=== PATIENT | female | born 1985 | race Caucasian/White ===

== ENCOUNTER 2016-11-16 16:19 | Emergency (ER) ==
[2016-11-16 16:41] VITALS: BP 93/58
--- NOTE | 2016-11-16 17:12 | PROVIDER DOCUMENTATION ---
HPI-Rash/Wound/ReCheck - General Source: patient - History of Present Illness-Dermatology Location: reports: chest (anterior) Quality: reports: itchy Severity: reports: mild Onset/Duration: reports: gradual, 2 days ago, 3 days ago Timing: reports: still present, constant Context/Associated Symptoms: reports: rash. denies: edema, fever, flushing, hives Locality of Occurance: Home Similar Symptoms Previously?: No Recently seen or treated by another doctor?: No <dA Zamora - Last Filed: 11/16/16 17:09> <Barber Canchola - Last Filed: 11/16/16 17:15> - General Chief Complaint: Rash Stated Complaint: RASH Time Seen by Provider: 11/16/16 16:53 Allergies/Adverse Reactions: Allergies Allergy/AdvReac Type Severity Reaction Status Date / Time zolpidem tartrate * AdvReac hallucinate Verified 11/16/16 16:47 [From Ambien] Home Medications: Home Medication List Medication Instructions Recorded Confirmed Last Taken Type Buprenorphine/Naloxone S.l. 1 each SL BID #60 strip 12/14/15 11/16/16 11/16/16 Rx [Suboxone 8 mg/2 mg] Clindamycin [Cleocin] 150 mg PO Q6HR #30 capsule 11/16/16 Unknown Rx Dextroamphetamine/Amphetamine 30 mg PO DAILY 11/16/16 11/16/16 11/15/16 History [Adderall 30 mg Tablet] Mupirocin Ointment [Bactroban 1 applicatn TOP TID #1 tube 11/16/16 Unknown Rx Ointment] - History of Present Illness-Dermatology Nature of Presenting Problem: Patient is a 31 y/o F that presents to the ER with rash to chest x a 3days. patient denies new soap, meds, or clothing. patient denies fever/chills, throat swelling, or shortness of breath. (Ad Zamora) Review of Systems - Adult - REVIEW OF SYSTEMS - ADULT Constitutional: denies: chills, fever Eyes: reports: no symptoms reported Ears, Nose, Mouth & Throat: denies: sinus problem, throat pain, throat swelling Cardiovascular: denies: chest pain, palpitations Respiratory: denies: cough, shortness of breath, wheezing Gastrointestinal: denies: diarrhea, nausea, vomiting Genitourinary: reports: no symptoms reported Musculoskeletal: reports: no symptoms reported Integumentary: reports: itching, rash. denies: hives, skin sores/ulcer, skin thickening Neurological: reports: no symptoms reported Psychiatric: reports: no symptoms reported Endocrine: reports: no symptoms reported Hematologic/Lymphatic: reports: no symptoms reported Allergic/Immunologic: reports: no symptoms reported All Other Systems: Reviewed and Negative <Ad Zamora - Last Filed: 11/16/16 17:09> Past History - Adult - PAST MEDICAL HISTORY-ADULT Review of Records: reports: Old Records Reviewed, Nursing Assessment Review, Medications Reviewed Musculoskeletal: reports: orthopedic injury - PRIOR SURGERIES/PROCEDURES Surgical/Procedure History: reports: , joint replacement - IMMUNIZATION STATUS Childhood Immunizations: See Nurse Assessment Flu Vaccine: See Nurse Assessment - FAMILY HISTORY Family History: reviewed, not pertinent - SOCIAL HISTORY Smoking: cigarettes, less than 1 pack/day <Ad Zamora - Last Filed: 11/16/16 17:09> Physical Exam-General - PHYSICAL EXAM-ADULT Initial Vital Signs Reviewed: Yes - CONSTITUTIONAL General Appearance: alert, no apparent distress - EYES Eyes: PERRL/EOMI, pink conjunctivae - HEAD, EARS, NOSE, MOUTH & THROAT HENMT: normocephalic/atraumatic, moist mucous membranes, normal ENT inspection - NECK Neck: full range of motion, normal inspection. negative: lymphadenopathy - RESPIRATORY Respiratory: lungs clear, normal breath sounds, no respiratory distress, no accessory muscle use - CARDIOVASCULAR Cardiovascular: regular rate, rhythm, no edema, no murmur - GASTROINTESTINAL (ABDOMEN) Abdominal Exam: normal bowel sounds, non tender, soft, no organomegaly, no pulsatile mass - MUSCULOSKELETAL Extremity: normal range of motion, normal inspection - SKIN Integumentary: warm/dry, rash (pustile, fascicular rash to chest) - NEUROLOGIC Neurologic: grossly normal, no motor/sensory deficits - PSYCHIATRIC Psych/Mental Status: normal mood/affect, normal thought content, normal thought process, oriented x 3 <Ad Zamora - Last Filed: 11/16/16 17:09> Progress <Ad Zamora - Last Filed: 11/16/16 17:09> <Barber Canchola - Last Filed: 11/16/16 17:15> - PLAN OF CARE/RESULTS Progress/Plan/Lab Results: Vital Signs Temp Pulse Resp BP Pulse Ox 11/16/16 16:38 97.9 F 98 H 18 93/58 100 zolpidem tartrate * [From Ambien] Adverse Reaction (Verified 11/16/16 16:47) hallucinate headache Buprenorphine/Naloxone S.l. [Suboxone 8 mg/2 mg] 1 each SL BID #60 strip Dextroamphetamine/Amphetamine [Adderall 30 mg Tablet] 30 mg PO DAILY 11/16/16 (Barber Canchola) Departure <Ad Zamora - Last Filed: 11/16/16 17:09> - Departure Time of Disposition Order: 17:13 Certified Medical Emergency: Urgent <Barber Canchola - Last Filed: 11/16/16 17:15> - Departure DIAGNOSIS: Folliculitis Disposition: HOME 01 Condition: Good Additional Instructions: Take medication as prescribed. Follow up with your primary care provider. ED Follow Up Instructions: You have been treated by a care provider in the Emergency Department. These instructions are being provided to you so you can have an understanding of how to care for yourself upon discharge. Upon discharge from the Emergency Department, you are responsible for making arrangements for follow-up care by a physician of your choice. Take all prescribed medications as directed. Return to the Emergency Department immediately for any new or worsening symptoms. You may call the Physician Referral phone number at [phone] to obtain a list of Physicians who are taking new patients. Prescriptions: Mupirocin Ointment [Bactroban Ointment] 1 applicatn TOP TID #1 tube Clindamycin [Cleocin] 150 mg PO Q6HR #30 capsule Referrals: Agustina Jackson CRNP [Primary Care Provider] - Antonia Madison MD [STAFF PHYSICIAN] - Attestation - Scribe Verification/Attestation Scribe:: Ad Zamora Acting as Scribe for:: Barber Canchola Scribe documention review:: This chart was documented by a scribe and accurately reflects the service the provider performed and the decisions made by the provider. - Physician/ LIV Attestation Patient care was provided by Advanced Practice Provider:: Yes Advanced Practice Provider:: Barber Canchola Advanced Practice Provider documentation review:: The Mid-level provider documentation, treatment plan and medical decision making was reviewed by the physician who agrees with all treatment and medical decision making by the MLP. <Ad Zamora - Last Filed: 11/16/16 17:09> - Physician/ LIV Attestation Patient care was provided by Advanced Practice Provider:: Yes Advanced Practice Provider:: Barber Canchola Advanced Practice Provider documentation review:: The Mid-level provider documentation, treatment plan and medical decision making was reviewed by the physician who agrees with all treatment and medical decision making by the MLP. <Barber Canchola - Last Filed: 11/16/16 17:15> Physician Attestation - Physician Attestation I, the provider, attest to the following statement:: Barber Canchola (.) Physician documentation Attestation:: This documentation recorded by the scribe accurately reflects the service I personally performed and the decisions made by me. <Ad Zamora - Last Filed: 11/16/16 17:09>
== END 2016-11-16 17:25 | disposition home or self-care (01) ==
LOC: ED 16:19
DX: L73.9 Follicular disorder, unspecified (principal); R21 Rash and other nonspecific skin eruption; L29.9 Pruritus, unspecified; F17.210 Nicotine dependence, cigarettes, uncomplicated; Z96.60 Presence of unspecified orthopedic joint implant

== ENCOUNTER 2016-11-25 12:31 | Emergency (ER) | payer OTHER ==
[2016-11-25] MEDS ORDERED: NITROGLYCERIN SL PRN (12:44)
[2016-11-25] MEDS ORDERED: ASPIRIN PO STA (12:44)
--- NOTE | 2016-11-25 12:50 | ED EKG INTERP ---
EKG Interpretation - EKG Time of EKG reading by physician:: 12:41 EKG Read and Signed by:: Héctor Walsh EKG Interpretation (*Must complete 3 of following elements*): Normal Rate: 85 Rhythm: NSR Attestation - Scribe Verification/Attestation Scribe:: Ana Pringle Acting as Scribe for:: Héctor Walsh Scribe documention review:: This chart was documented by a scribe and accurately reflects the service the provider performed and the decisions made by the provider.
[2016-11-25 13:10] LABS: MANUAL DIFF NEEDED? NO
[2016-11-25 13:14] LABS: BASO% 0.3 % (0.0-0.8); EOS# 0.14 X1000 (0.0-0.7); EOS% 1.9 % (0.0-10.0); HEMATOCRIT 37.7 % (37.0-47.0); HEMOGLOBIN 13.2 g/dL (12.0-16.0); LYMPH# 2.51 X1000 (1.2-3.4); LYMPH% 34.2 % (20.5-51.1); MCH 31.2 PG (27-31); MCV 89.1 FL (81-99); MONO# 0.81 X1000 (0.11-0.59); MONO% 11.1 % (1.7-9.3); MPV 9.3 FL (7.4-10.4); NEUT% 52.5 % (42.2-75.2); PLT 326 X1000 (130-400); RBC 4.23 XMIL (4.2-5.4)
[2016-11-25 13:23] LABS: PROTIME 10.5 Seconds (9.2-11.7); PTT 27.8 Seconds (22.0-36.0)
[2016-11-25 13:40] LABS: AGAP 12; ALBUMIN 3.7 g/dL (3.5-5.0); ALKALINE PHOSPHATASE 93 U/L (32-104); BUN 14 mg/dL (8-22); CALCIUM 8.3 mg/dL (8.8-10.2); CHLORIDE 105 mmol/L (98-107); CK PROFILE 57 U/L (24-173); COSMO 272; GOT 23 U/L (10-30); GPT 26 U/L (10-36); MAGNESIUM 1.8 mg/dL (1.5-2.7); POTASSIUM 3.7 mmol/L (3.5-5.1); SODIUM 136 mmol/L (136-145); TCO2 19 mmol/L (25-35); TOTAL BILIRUBIN 0.15 mg/dL (0.20-1.00); TOTAL PROTEIN 7.4 g/dL (6.3-8.3)
--- NOTE | 2016-11-25 14:06 | EKG Report ---
Test Performed on : 11/25/2016 12:41:20 PM Test Reason : CP Blood Pressure : / mmHG Vent. Rate : 085 BPM Atrial Rate : 085 BPM P-R Int : 156 ms QRS Dur : 064 ms QT Int : 352 ms P-R-T Axes : 008 018 015 degrees QTc Int : 418 ms Normal sinus rhythm. Normal ECG When compared with ECG of 10-JUL-2016 21:45, No significant change was found Unconfirmed Result
[2016-11-25 14:20] LABS: URINE MICRO REVIEW NEEDED? NO; URINE SOURCE CLEAN CATCH
[2016-11-25 14:28] VITALS: BP 124/81
[2016-11-25 14:30] LABS: BILIRUBIN URINE NEGATIVE (NEGATIVE); BLOOD URINE TRACE (NEGATIVE); COLOR YELLOW; GLUCOSE URINE NEGATIVE (NEGATIVE); LEUKOCYTES URINE MODERATE (NEGATIVE); NITRITE URINE POSITIVE (NEGATIVE); PH URINE 5.5; PROTEIN URINE TRACE mg/dL (NEGATIVE); SP GRAVITY URINE 1.029; TURBIDITY URINE HAZY (CLEAR); UROBILINOGEN URINE NORMAL (NORMAL)
[2016-11-25 14:31] LABS: UR EPITHELIAL CELLS >10 /HPF (<10); URINE BACTERIA 4+ /HPF; URINE CULTURE NEEDED? YES; URINE RBC <10 /HPF (<10)
[2016-11-25] MEDS ORDERED: ROBAXIN PO ONE (14:36)
--- NOTE | 2016-11-25 14:41 | Diag Imaging Result Document ---
PROCEDURE NAME: CHEST-2 VIEWS - 11/25/2016 CHEST X-RAY, 2 VIEWS: COMPARISON: 07/13/16 FINDINGS: The lungs are normally expanded and clear. Heart size and mediastinal contours are normal. No pneumothorax or pleural effusion. IMPRESSION: Negative exam.
--- NOTE | 2016-11-25 14:44 | PROVIDER DOCUMENTATION ---
HPI-Chest Pain - General Chief Complaint: Chest Pain Stated Complaint: CP,TINGLING IN LEFT ARM Time Seen by Provider: 11/25/16 14:34 Source: patient Allergies/Adverse Reactions: Patient Allergies Allergy/AdvReac Type Severity Reaction Status Date / Time zolpidem tartrate * AdvReac hallucinate Verified 11/25/16 14:32 [From Ambien] Home Medications: Home Medication List Medication Instructions Recorded Confirmed Last Taken Type Methocarbamol [Robaxin] 500 mg PO BID #20 tablet 11/25/16 Unknown Rx Sulfamethoxazole/Trimethoprim 1 each PO BID #14 tablet 11/25/16 Unknown Rx [Bactrim Ds Tablet] - History of Present Illness-CP Nature of Presenting Problem: 31 y/o F with history of PTSD and fibromyalgia presents with left upper back pain that radiates into the left chest and left arm that began at 8am this morning. Patient states the pain began when laying down and has been constant. Pain is described as throbbing with associated tingling in the left hand. She also reports anxiety and increased stress recently. She denies any SOB, N/V, diaphoresis, history of PE/DVT. Her PCP is Dr. Jackson. She is on suboxone and mobic for pain and prozac for anxiety/depression/PTSD. Denies any HI/SI. Location: reports: back, other (left upper chest) Quality of Pain: reports: throbbing Severity in ED: moderate Onset/Duration: this morning Timing: still present Context/Activities at Onset: reports: recent emotional stress Modifying Factors: improves with: nothing Associated Symptoms: denies: diaphoresis, dizziness, fever/chills, nausea, weakness Review of Systems - Adult - REVIEW OF SYSTEMS - ADULT Constitutional: reports: no symptoms reported. denies: chills, fever Eyes: reports: no symptoms reported. denies: decreased vision, blurred vision Ears, Nose, Mouth & Throat: reports: no symptoms reported. denies: ear pain, hearing loss Cardiovascular: reports: see HPI Respiratory: reports: no symptoms reported. denies: cough, shortness of breath , wheezing Gastrointestinal: reports: no symptoms reported. denies: abdominal pain, nausea , vomiting Genitourinary: reports: frequency. denies: flank pain, hematuria Musculoskeletal: reports: see HPI Integumentary: reports: no symptoms reported Neurological: reports: no symptoms reported. denies: dizziness/vertigo, headache/migraines, numbness, paresthesia Psychiatric: reports: no symptoms reported Endocrine: reports: no symptoms reported Hematologic/Lymphatic: reports: no symptoms reported. denies: blood clots, easy bruising Allergic/Immunologic: reports: no symptoms reported All Other Systems: Reviewed and Negative Past History - Adult - PAST MEDICAL HISTORY-ADULT Review of Records: reports: Nursing Assessment Review, Medications Reviewed Musculoskeletal: reports: orthopedic injury - PRIOR SURGERIES/PROCEDURES Surgical/Procedure History: reports: , joint replacement - IMMUNIZATION STATUS Childhood Immunizations: See Nurse Assessment Flu Vaccine: See Nurse Assessment - FAMILY HISTORY Family History: reviewed, not pertinent Physical Exam-General - PHYSICAL EXAM-ADULT Initial Vital Signs Reviewed: Yes - CONSTITUTIONAL General Appearance: alert, no apparent distress, anxious - EYES Eyes: PERRL/EOMI, pink conjunctivae - HEAD, EARS, NOSE, MOUTH & THROAT HENMT: normocephalic/atraumatic, moist mucous membranes - NECK Neck: supple, other (pain in left upper back with right lateral tilt of head. Tenderness of left upper trapezius muscle.) - RESPIRATORY Respiratory: lungs clear, normal breath sounds, no pleuratic chest pain, no respiratory distress, no accessory muscle use, other (left upper chest tenderness) - CARDIOVASCULAR Cardiovascular: normal peripheral pulses, regular rate, rhythm, no edema, no gallop, no JVD, no murmur - GASTROINTESTINAL (ABDOMEN) Abdominal Exam: normal bowel sounds, non tender, soft - LYMPHATIC Lymphatic: no adenopathy - MUSCULOSKELETAL Back Exam: normal inspection, no vertebral tenderness Extremity: other (bilateral upper extremity with full ROM and normal strength. Bilateral LE are normal.) - SKIN Integumentary: normal color, normal turgor, warm/dry - NEUROLOGIC Neurologic: grossly normal, no motor/sensory deficits. negative: focal weakness , motor weakness, sensory deficit - PSYCHIATRIC Psych/Mental Status: normal thought content, normal thought process, oriented x 3, anxious Progress - PLAN OF CARE/RESULTS Progress/Plan/Lab Results: Laboratory Tests 11/25/16 11/25/16 11/25/16 12:57 12:57 12:57 WBC 7.33 RBC 4.23 Hgb 13.2 Hct 37.7 MCV 89.1 MCH 31.2 H MCHC 35.0 RDW Std Deviation 11.5 Plt Count 326 MPV 9.3 Immature Gran % (Auto) 0.0 Neut % (Auto) 52.5 Lymph % (Auto) 34.2 [place] % (Auto) 11.1 H Eos % (Auto) 1.9 Baso % (Auto) 0.3 Immature Gran # (Auto) 0.00 Neut # (Auto) 3.85 Lymph # (Auto) 2.51 [place] # (Auto) 0.81 H Eos # (Auto) 0.14 Baso # (Auto) 0.02 PT INR PTT (Actin FS) D-Dimer 0.22 Sodium 136 Potassium 3.7 Chloride 105 Carbon Dioxide 19 L Anion Gap 12 BUN 14 Creatinine 0.6 Estimated GFR/1.73 m2 > 60 BUN/Creatinine Ratio 23 Glucose 96 Calculated Osmolality 272 Calcium 8.3 L Magnesium 1.8 Total Bilirubin 0.15 L AST 23 ALT 26 Alkaline Phosphatase 93 Creatine Kinase 57 Troponin T Pti-I-Nscdprgfdze Pept Total Protein 7.4 Albumin 3.7 Globulin 3.7 Albumin/Globulin Ratio 1.0 Urine Source Urine Color Urine Turbidity Urine pH Ur Specific [place] Urine Protein Ur Glucose (Stick) Ur Ketones (Stick) Urine Blood Urine Nitrite Urine Bilirubin Urobilinogen Dipstick Urine Leukocytes Urine WBC (Auto) Urine RBC (Auto) U Epithel Cells (Auto) Urine Bacteria (Auto) 11/25/16 11/25/16 11/25/16 12:57 12:57 12:57 WBC RBC Hgb Hct MCV MCH MCHC RDW Std Deviation Plt Count MPV Immature Gran % (Auto) Neut % (Auto) Lymph % (Auto) [place] % (Auto) Eos % (Auto) Baso % (Auto) Immature Gran # (Auto) Neut # (Auto) Lymph # (Auto) [place] # (Auto) Eos # (Auto) Baso # (Auto) PT 10.5 INR 1.00 PTT (Actin FS) 27.8 D-Dimer Sodium Potassium Chloride Carbon Dioxide Anion Gap BUN Creatinine Estimated GFR/1.73 m2 BUN/Creatinine Ratio Glucose Calculated Osmolality Calcium Magnesium Total Bilirubin AST ALT Alkaline Phosphatase Creatine Kinase Troponin T < 0.010 Jfe-S-Mppufnfjkri Pept 16 Total Protein Albumin Globulin Albumin/Globulin Ratio Urine Source Urine Color Urine Turbidity Urine pH Ur Specific [place] Urine Protein Ur Glucose (Stick) Ur Ketones (Stick) Urine Blood Urine Nitrite Urine Bilirubin Urobilinogen Dipstick Urine Leukocytes Urine WBC (Auto) Urine RBC (Auto) U Epithel Cells (Auto) Urine Bacteria (Auto) 11/25/16 13:25 WBC RBC Hgb Hct MCV MCH MCHC RDW Std Deviation Plt Count MPV Immature Gran % (Auto) Neut % (Auto) Lymph % (Auto) [place] % (Auto) Eos % (Auto) Baso % (Auto) Immature Gran # (Auto) Neut # (Auto) Lymph # (Auto) [place] # (Auto) Eos # (Auto) Baso # (Auto) PT INR PTT (Actin FS) D-Dimer Sodium Potassium Chloride Carbon Dioxide Anion Gap BUN Creatinine Estimated GFR/1.73 m2 BUN/Creatinine Ratio Glucose Calculated Osmolality Calcium Magnesium Total Bilirubin AST ALT Alkaline Phosphatase Creatine Kinase Troponin T Dme-N-Sgehkpbwuah Pept Total Protein Albumin Globulin Albumin/Globulin Ratio Urine Source CLEAN CATCH Urine Color YELLOW Urine Turbidity HAZY Urine pH 5.5 Ur Specific [place] 1.029 Urine Protein TRACE A Ur Glucose (Stick) NEGATIVE Ur Ketones (Stick) NEGATIVE Urine Blood TRACE A Urine Nitrite POSITIVE A Urine Bilirubin NEGATIVE Urobilinogen Dipstick NORMAL Urine Leukocytes MODERATE A Urine WBC (Auto) 10-20 A Urine RBC (Auto) <10 U Epithel Cells (Auto) >10 A Urine Bacteria (Auto) 4+ Orders Category Date Time Status Cardiac Monitoring DIRECTED Care 11/25/16 12:44 Active Saline Loc NOW Care 11/25/16 12:44 Active CHEST-2 VIEWS [RAD] Stat Exams 11/25/16 12:44 Draft CBC WITH ELECTRONIC DIFF [HEME] Stat Lab 11/25/16 12:57 Completed CK PROFILE [SP CHEM] Stat Lab 11/25/16 12:57 Completed COMPREHENSIVE METABOLIC PANEL [CHEM] Stat Lab 11/25/16 12:57 Completed D-DIMER [CHEM] Stat Lab 11/25/16 12:57 Completed MAGNESIUM [CHEM] Stat Lab 11/25/16 12:57 Completed PRO B-NATRIURETIC PEPTIDE Stat Lab 11/25/16 12:57 Completed PROTIME WITH INR [COAG] Stat Lab 11/25/16 12:57 Completed PTT [COAG] Stat Lab 11/25/16 12:57 Completed TROPONIN T Stat Lab 11/25/16 12:57 Completed UA NIMS W/REFLEX CULT [URINALYSIS] Stat Lab 11/25/16 13:25 Completed URINE CULTURE [RM] Routine Lab 11/25/16 14:35 Received Aspirin Med 11/25/16 12:44 Discontinued 325 mg PO STAT STA Methocarbamol [Robaxin] Med 11/25/16 14:36 Discontinued 500 mg PO NOW ONE Nitroglycerin Sl [Nitroglycerin] Med 11/25/16 12:44 Discontinued 0.4 mg SL Q5M PRN PRN EKG [EKG] Stat Ther 11/25/16 12:38 Draft Vital Signs Temp Pulse Resp BP Pulse Ox 11/25/16 14:27 93 H 18 124/81 99 11/25/16 12:45 97.4 F L 90 18 111/77 100 zolpidem tartrate * [From Ambien] Adverse Reaction (Verified 11/25/16 14:32) hallucinate headache Methocarbamol [Robaxin] 500 mg PO BID #20 tablet 11/25/16 Sulfamethoxazole/Trimethoprim [Bactrim Ds Tablet] 1 each PO BID #14 tablet 11/25 Laboratory 11/25/16 11/25/16 11/25/16 13:25 12:57 12:57 WBC RBC Hgb Hct MCV MCH MCHC RDW Std Deviation Plt Count MPV Immature Gran % (Auto) Neut % (Auto) Lymph % (Auto) [place] % (Auto) Eos % (Auto) Baso % (Auto) Immature Gran # (Auto) Neut # (Auto) Lymph # (Auto) [place] # (Auto) Eos # (Auto) Baso # (Auto) PT 10.5 INR 1.00 PTT (Actin FS) 27.8 D-Dimer Sodium Potassium Chloride Carbon Dioxide Anion Gap BUN Creatinine Estimated GFR/1.73 m2 BUN/Creatinine Ratio Glucose Calculated Osmolality Calcium Magnesium Total Bilirubin AST ALT Alkaline Phosphatase Creatine Kinase Troponin T < 0.010 Tev-U-Wscjknfymid Pept Total Protein Albumin Globulin Albumin/Globulin Ratio Urine Source CLEAN CATCH Urine Color YELLOW Urine Turbidity HAZY Urine pH 5.5 Ur Specific [place] 1.029 Urine Protein TRACE A Ur Glucose (Stick) NEGATIVE Ur Ketones (Stick) NEGATIVE Urine Blood TRACE A Urine Nitrite POSITIVE A Urine Bilirubin NEGATIVE Urobilinogen Dipstick NORMAL Urine Leukocytes MODERATE A Urine WBC (Auto) 10-20 A Urine RBC (Auto) <10 U Epithel Cells (Auto) >10 A Urine Bacteria (Auto) 4+ 11/25/16 11/25/16 11/25/16 12:57 12:57 12:57 WBC RBC Hgb Hct MCV MCH MCHC RDW Std Deviation Plt Count MPV Immature Gran % (Auto) Neut % (Auto) Lymph % (Auto) [place] % (Auto) Eos % (Auto) Baso % (Auto) Immature Gran # (Auto) Neut # (Auto) Lymph # (Auto) [place] # (Auto) Eos # (Auto) Baso # (Auto) PT INR PTT (Actin FS) D-Dimer 0.22 Sodium 136 Potassium 3.7 Chloride 105 Carbon Dioxide 19 L Anion Gap 12 BUN 14 Creatinine 0.6 Estimated GFR/1.73 m2 > 60 BUN/Creatinine Ratio 23 Glucose 96 Calculated Osmolality 272 Calcium 8.3 L Magnesium 1.8 Total Bilirubin 0.15 L AST 23 ALT 26 Alkaline Phosphatase 93 Creatine Kinase 57 Troponin T Ojd-G-Rebpgakxdes Pept 16 Total Protein 7.4 Albumin 3.7 Globulin 3.7 Albumin/Globulin Ratio 1.0 Urine Source Urine Color Urine Turbidity Urine pH Ur Specific [place] Urine Protein Ur Glucose (Stick) Ur Ketones (Stick) Urine Blood Urine Nitrite Urine Bilirubin Urobilinogen Dipstick Urine Leukocytes Urine WBC (Auto) Urine RBC (Auto) U Epithel Cells (Auto) Urine Bacteria (Auto) 11/25/16 12:57 WBC 7.33 RBC 4.23 Hgb 13.2 Hct 37.7 MCV 89.1 MCH 31.2 H MCHC 35.0 RDW Std Deviation 11.5 Plt Count 326 MPV 9.3 Immature Gran % (Auto) 0.0 Neut % (Auto) 52.5 Lymph % (Auto) 34.2 [place] % (Auto) 11.1 H Eos % (Auto) 1.9 Baso % (Auto) 0.3 Immature Gran # (Auto) 0.00 Neut # (Auto) 3.85 Lymph # (Auto) 2.51 [place] # (Auto) 0.81 H Eos # (Auto) 0.14 Baso # (Auto) 0.02 PT INR PTT (Actin FS) D-Dimer Sodium Potassium Chloride Carbon Dioxide Anion Gap BUN Creatinine Estimated GFR/1.73 m2 BUN/Creatinine Ratio Glucose Calculated Osmolality Calcium Magnesium Total Bilirubin AST ALT Alkaline Phosphatase Creatine Kinase Troponin T Ibz-V-Wuhcpxwvxme Pept Total Protein Albumin Globulin Albumin/Globulin Ratio Urine Source Urine Color Urine Turbidity Urine pH Ur Specific [place] Urine Protein Ur Glucose (Stick) Ur Ketones (Stick) Urine Blood Urine Nitrite Urine Bilirubin Urobilinogen Dipstick Urine Leukocytes Urine WBC (Auto) Urine RBC (Auto) U Epithel Cells (Auto) Urine Bacteria (Auto) Departure - Departure Time of Disposition Order: 14:37 DIAGNOSIS: Chest wall pain, Upper back pain on right side, UTI (urinary tract infection) Disposition: HOME 01 Certified Medical Emergency: Emergent Condition: Good Additional Instructions: ED Follow Up Instructions: You have been treated by a care provider in the Emergency Department. These instructions are being provided to you so you can have an understanding of how to care for yourself upon discharge. Upon discharge from the Emergency Department, you are responsible for making arrangements for follow-up care by a physician of your choice. Take all prescribed medications as directed. Return to the Emergency Department immediately for any new or worsening symptoms. You may call the Physician Referral phone number at [phone] to obtain a list of Physicians who are taking new patients. Prescriptions: Sulfamethoxazole/Trimethoprim [Bactrim Ds Tablet] 1 each PO BID #14 tablet Methocarbamol [Robaxin] 500 mg PO BID #20 tablet Referrals: Agustina Jackson CRNP [Primary Care Provider] - Instructions: Chest Wall Pain, [id number], Urinary Tract Infection, Easy-to- Read Attestation - Physician/ LIV Attestation Patient care was provided by Advanced Practice Provider:: Yes Advanced Practice Provider:: Pushpa Urrutia Advanced Practice Provider documentation review:: The Mid-level provider documentation, treatment plan and medical decision making was reviewed by the physician who agrees with all treatment and medical decision making by the MLP.
== END 2016-11-25 14:50 | disposition home or self-care (01) ==
LOC: ED 12:31
DX: N39.0 Urinary tract infection, site not specified (principal); R07.89 Other chest pain; M54.6 Pain in thoracic spine; R20.2 Paresthesia of skin; M79.602 Pain in left arm; R35.0 Frequency of micturition; M79.1 Myalgia; M79.7 Fibromyalgia; Z96.60 Presence of unspecified orthopedic joint implant
CPT/HCPCS: 71020; 80053; 81001; 82550; 83735; 83880; 84484; 85025; 85379; 85610; 85730; 87077; 87088; 93005

== ENCOUNTER 2017-03-16 16:36 | Inpatient (IN) ==
[2017-03-16] MEDS ORDERED: ZOFRAN IV ONE (17:42)
[2017-03-16] MEDS ORDERED: FLEET MINERAL OIL ENEMA PR ONE (17:43)
[2017-03-16] MEDS ORDERED: RELISTOR SUBQ ONE (17:48)
[2017-03-16 18:07] LABS: MANUAL DIFF NEEDED? NO
[2017-03-16 18:12] LABS: URINE SOURCE CLEAN CATCH
[2017-03-16 18:13] LABS: BASO% 0.1 % (0.0-0.8); EOS# 0.01 X1000 (0.0-0.7); EOS% 0.1 % (0.0-10.0); HEMATOCRIT 32.6 % (37.0-47.0); HEMOGLOBIN 11.3 g/dL (12.0-16.0); IMM GRAN# 0.02 X1000 (0.0-0.04); IMM GRAN% 0.2 % (0.0-0.5); LYMPH# 1.02 X1000 (1.2-3.4); LYMPH% 10.9 % (20.5-51.1); MCH 30.4 PG (27-31); MCHC 34.7 g/dL (33-37); MCV 87.6 FL (81-99); MONO# 1.55 X1000 (0.11-0.59); MONO% 16.5 % (1.7-9.3); MPV 10.2 FL (7.4-10.4); NEUT% 72.2 % (42.2-75.2); PLT 254 X1000 (130-400); RBC 3.72 XMIL (4.2-5.4)
[2017-03-16 18:17] LABS: BILIRUBIN URINE NEGATIVE (NEGATIVE); BLOOD URINE SMALL (NEGATIVE); COLOR ORANGE; GLUCOSE URINE NEGATIVE (NEGATIVE); LEUKOCYTES URINE LARGE (NEGATIVE); NITRITE URINE POSITIVE (NEGATIVE); PH URINE 7.5; PROTEIN URINE 30 mg/dL (NEGATIVE); SP GRAVITY URINE 1.005; TURBIDITY URINE HAZY (CLEAR); URINE MICRO REVIEW NEEDED? YES; UROBILINOGEN URINE NORMAL (NORMAL)
[2017-03-16 18:20] LABS: UR EPITHELIAL CELLS <10 /HPF (<10); URINE BACTERIA 4+ /HPF; URINE CULTURE NEEDED? YES; URINE RBC <10 /HPF (<10); URINE WBC TNTC /HPF (<10)
--- NOTE | 2017-03-16 18:41 | PROVIDER DOCUMENTATION ---
This chart was entered by Luz Melo Scribe, acting as scribe for Juan Carlos Ochoa MD. HPI-Abdominal Pain/GI Problem <Silas Arellano. - Last Filed: 03/16/17 20:56> - General Source: patient - History of Present Illness-ABD Nature of Presenting Problems: 31 Y/O F presents to ED with ABD pain. Pt states that she hasn't had a BM in 4 weeks. PT states that is Normal for her. Pt states that she started V on Wednesday and is c/o of N, Pt states Headache sharp in frontal, Fever subjective. Pt states chills that started last night. Pt states she tried a home made enema, and took a laxative last night. Per boyfriend states that she had rapid, shallow breathes denies CP. PT states that she is on the implanon. Abdominal Pain Onset Location: reports: RUQ, RLQ Pain Radiation: reports: no radiation Quality of Pain: reports: cramping Severity in ED: reports: severe Onset/Duration: reports: last night Timing: reports: still present Associated Symptoms: reports: constipation, fever/chills, headaches, nausea, vomiting. denies: chest pain, cough, diarrhea, genitourinary problems, muscle aches, sinus congestion/drainage Last BM: other (4 weeks ago) <Juan Carlos Ochoa - Last Filed: 03/17/17 20:21> - General Chief Complaint: Constipation Stated Complaint: CONSTIPATED,VOMITING,FEVER Time Seen by Provider: 03/16/17 17:29 Allergies/Adverse Reactions: Patient Allergies Allergy/AdvReac Type Severity Reaction Status Date / Time No Known Allergies Allergy Verified 03/16/17 17:43 Home Medications: Home Medication List Medication Instructions Recorded Confirmed Last Taken Type NK [No Home Medications] 03/16/17 03/16/17 Unknown History Review of Systems - Adult - REVIEW OF SYSTEMS - ADULT Constitutional: reports: chills, fever Eyes: reports: no symptoms reported Ears, Nose, Mouth & Throat: reports: no symptoms reported Cardiovascular: denies: chest pain Respiratory: denies: cough, shortness of breath Gastrointestinal: reports: abdominal pain, constipation, nausea, vomiting. denies: diarrhea Genitourinary: reports: no symptoms reported Musculoskeletal: reports: no symptoms reported Integumentary: reports: no symptoms reported Neurological: reports: headache/migraines Psychiatric: reports: no symptoms reported Endocrine: reports: no symptoms reported Hematologic/Lymphatic: reports: no symptoms reported Allergic/Immunologic: reports: no symptoms reported All Other Systems: Reviewed and Negative <Juan Carlos Ochoa - Last Filed: 03/17/17 20:21> Past History - Adult - PAST MEDICAL HISTORY-ADULT Review of Records: reports: Old Records Reviewed, Nursing Assessment Review, Medications Reviewed, Social history reviewed & non-contributory. Major Childhood Illnesses: reports: denies history Cardiovascular: reports: denies history Respiratory: reports: denies history Gastrointestinal: reports: denies history Obstetrical/Gynecological: reports: denies history Genitourinary: reports: denies history Musculoskeletal: reports: fibromyalgia, orthopedic injury Neurological: reports: other (ADD) Endocrine/Immune: reports: denies history Other Conditions: reports: denies history - PRIOR SURGERIES/PROCEDURES Surgical/Procedure History: reports: , joint replacement - IMMUNIZATION STATUS Childhood Immunizations: See Nurse Assessment Flu Vaccine: See Nurse Assessment - FAMILY HISTORY Family History: reviewed, not pertinent <Juan Carlos Ochoa - Last Filed: 03/17/17 20:21> Physical Exam-General - CONSTITUTIONAL General Appearance: alert, mild distress - EYES Eyes: pink conjunctivae, anisocoria - HEAD, EARS, NOSE, MOUTH & THROAT HENMT: TMs normal, pharynx normal, dental decay. negative: moist mucous membranes - NECK Neck: full range of motion, supple, normal inspection - RESPIRATORY Respiratory: lungs clear, normal breath sounds - CARDIOVASCULAR Cardiovascular: regular rate, rhythm - GASTROINTESTINAL (ABDOMEN) Abdominal Exam: soft, tenderness (RUQ) - LYMPHATIC Lymphatic: no adenopathy - MUSCULOSKELETAL Back Exam: no CVA tenderness, no vertebral tenderness Extremity: normal range of motion, non-tender - SKIN Integumentary: normal turgor, warm/dry - NEUROLOGIC Neurologic: grossly normal - PSYCHIATRIC Psych/Mental Status: normal mood/affect, normal thought content, normal thought process, oriented x 3 <Juan Carlos Ochoa - Last Filed: 03/17/17 20:21> Progress - PLAN OF CARE/RESULTS Progress/Plan/Lab Results: Vital Signs - 8 hr 03/16/17 17:05 Temperature 100.5 F H Pulse Rate 122 H Respiratory Rate 24 Blood Pressure 107/72 O2 Sat by Pulse Oximetry 100 Laboratory Results - last 24 hr 03/16/17 03/16/17 03/16/17 17:55 17:55 18:08 WBC 9.37 RBC 3.72 L Hgb 11.3 L Hct 32.6 L MCV 87.6 MCH 30.4 MCHC 34.7 RDW Std Deviation 12.4 Plt Count 254 MPV 10.2 Immature Gran % (Auto) 0.2 Neut % (Auto) 72.2 Lymph % (Auto) 10.9 L Benson % (Auto) 16.5 H Eos % (Auto) 0.1 Baso % (Auto) 0.1 Immature Gran # (Auto) 0.02 Neut # (Auto) 6.76 H Lymph # (Auto) 1.02 L Benson # (Auto) 1.55 H Eos # (Auto) 0.01 Baso # (Auto) 0.01 Sodium 133 L Potassium 3.3 L Chloride 96 L Carbon Dioxide 25 Anion Gap 12 BUN 5 L Creatinine 0.6 Estimated GFR/1.73 m2 > 60 BUN/Creatinine Ratio 8 Glucose 112 H Calculated Osmolality 264 Calcium 8.5 L Total Bilirubin 0.26 AST 12 ALT 11 Alkaline Phosphatase 71 Total Protein 7.5 Albumin 3.2 L Globulin 4.3 Albumin/Globulin Ratio 0.7 Urine Source CLEAN CATCH Urine Color ORANGE Urine Turbidity HAZY Urine pH 7.5 Ur Specific Butler 1.005 Urine Protein 30 A Ur Glucose (Stick) NEGATIVE Ur Ketones (Stick) NEGATIVE Urine Blood SMALL A Urine Nitrite POSITIVE A Urine Bilirubin NEGATIVE Urobilinogen Dipstick NORMAL Urine Leukocytes LARGE A Urine WBC (Auto) TNTC A Urine RBC (Auto) <10 U Epithel Cells (Auto) <10 Urine Bacteria (Auto) 4+ Urine Crystals Not Reportable Small Round Cells Not Reportable Urine Casts Not Reportable Urine Yeast-like Cells Not Reportable Urine Test Urine Opiates Screen Ur Oxycodone Screen Ur Methadone, Qual Ur Barbiturates Screen Ur Phencyclidine Scrn Ur Amphetamines Screen U Benzodiazepines Scrn Urine Cocaine Screen U Cannabinoids Screen 03/16/17 03/16/17 18:08 18:08 WBC RBC Hgb Hct MCV MCH MCHC RDW Std Deviation Plt Count MPV Immature Gran % (Auto) Neut % (Auto) Lymph % (Auto) Benson % (Auto) Eos % (Auto) Baso % (Auto) Immature Gran # (Auto) Neut # (Auto) Lymph # (Auto) Benson # (Auto) Eos # (Auto) Baso # (Auto) Sodium Potassium Chloride Carbon Dioxide Anion Gap BUN Creatinine Estimated GFR/1.73 m2 BUN/Creatinine Ratio Glucose Calculated Osmolality Calcium Total Bilirubin AST ALT Alkaline Phosphatase Total Protein Albumin Globulin Albumin/Globulin Ratio Urine Source Urine Color Urine Turbidity Urine pH Ur Specific Butler Urine Protein Ur Glucose (Stick) Ur Ketones (Stick) Urine Blood Urine Nitrite Urine Bilirubin Urobilinogen Dipstick Urine Leukocytes Urine WBC (Auto) Urine RBC (Auto) U Epithel Cells (Auto) Urine Bacteria (Auto) Urine Crystals Small Round Cells Urine Casts Urine Yeast-like Cells Urine Test NEGATIVE Urine Opiates Screen NONE DETECTED Ur Oxycodone Screen NONE DETECTED Ur Methadone, Qual NONE DETECTED Ur Barbiturates Screen NONE DETECTED Ur Phencyclidine Scrn NONE DETECTED Ur Amphetamines Screen PRESUMPTIVE POSITIVE A U Benzodiazepines Scrn PRESUMPTIVE POSITIVE A Urine Cocaine Screen PRESUMPTIVE POSITIVE A U Cannabinoids Screen PRESUMPTIVE POSITIVE A Orders Category Date Time Status CT ABD/PELVIS W/ IV CONT ONLY [CT] Stat Exams 03/16/17 17:41 Completed CBC WITH DIFF [HEME] Stat Lab 03/16/17 17:55 Completed COMPREHENSIVE METABOLIC PANEL [CHEM] Stat Lab 03/16/17 17:55 Completed TEST-URINE [PREG] Stat Lab 03/16/17 18:08 Completed URINALYSIS W/POSS RFLX CULT [URINALYSIS] Stat Lab 03/16/17 18:08 Completed URINE CULTURE [RM] Routine Lab 03/16/17 18:22 Received URINE DRUG SCREEN Stat Lab 03/16/17 18:08 Completed URINE MANUAL MICROSCOPIC [URINALYSIS] Stat Lab 03/16/17 18:08 Completed Methylnaltrexone [Relistor] Med 03/16/17 17:48 Discontinued 12 mg SUBQ NOW ONE Mineral Oil [Fleet Mineral Oil Enema] Med 03/16/17 17:43 Discontinued 133 ml VT NOW ONE Ondansetron [Zofran] Med 03/16/17 17:42 Discontinued 8 mg IV NOW ONE Result Diagrams: 03/16/17 17:55 03/16/17 17:55 - CT/MRI 1 Impression: Abnormal (Pyelonephritis, cholelithiasis. 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 Left ovarian cyst - CHANGE OF SHIFT REPORT (ED Provider) Report Given and Care Transferred to:: [facility] Time of Transfer: 18:40 Items Pending: CT/MRI Results, Other (enema, relistor results) <Juan Carlos Ochoa - Last Filed: 03/17/17 20:21> Departure - Departure Date of Disposition Decision: 03/16/17 Time of Disposition Decision: 21:00 Certified Medical Emergency: Emergent - Critical Care Note This patient required my direct & personal management of CC.: No <Silas Arellano - Last Filed: 03/16/17 20:56> - Departure Date of Disposition Decision: 03/16/17 Time of Disposition Decision: 21:01 Certified Medical Emergency: Emergent - Critical Care Note This patient required my direct & personal management of CC.: No <Juan Carlos Ochoa - Last Filed: 03/17/17 20:21> - Departure DIAGNOSIS: Pyelonephritis, [place]-vesical fistula Disposition: ADMITTED INPATIENT 09 Condition: Fair This chart was documented by the indicated scribe, (Luz Melo Scribe) and accurately reflects the services I performed and decisions made by me, Juan Carlos Ochoa MD, as attested by the provider's signature.
[2017-03-16 18:50] LABS: AGAP 12; ALBUMIN 3.2 g/dL (3.5-5.0); ALKALINE PHOSPHATASE 71 U/L (32-104); BUN 5 mg/dL (8-22); CALCIUM 8.5 mg/dL (8.8-10.2); CHLORIDE 96 mmol/L (98-107); COSMO 264; GOT 12 U/L (10-30); GPT 11 U/L (10-36); POTASSIUM 3.3 mmol/L (3.5-5.1); SODIUM 133 mmol/L (136-145); TCO2 25 mmol/L (25-35); TOTAL BILIRUBIN 0.26 mg/dL (0.20-1.00); TOTAL PROTEIN 7.5 g/dL (6.3-8.3)
[2017-03-16 18:52] LABS: UR AMPHETAMINES QUAL PRESUMPTIVE POSITIVE (NONE DETECT); UR BARBITUATES QUAL NONE DETECTED (NONE DETECT); UR BENZODIAZEPIN QUAL PRESUMPTIVE POSITIVE (NONE DETECT); UR CANNABINOIDS QUAL PRESUMPTIVE POSITIVE (NONE DETECT); UR COCAINE QUAL PRESUMPTIVE POSITIVE (NONE DETECT); UR METHADONE QUAL NONE DETECTED (NONE DETECT); UR OPIATES QUAL NONE DETECTED (NONE DETECT); UR OXYCODONE QUAL NONE DETECTED (NONE DETECT); UR PCP QUAL NONE DETECTED (NONE DETECT)
--- NOTE | 2017-03-16 19:58 | Diag Imaging Result Doc PS360 ---
EXAM: CT ABD/PELVIS W/ IV CONT ONLY HISTORY: abd pain, no bm in 4 weeks TECHNIQUE: CT of the abdomen with intravenous contrast with reduced radiation dose (clarity.) COMMENT: There is atelectasis in both lung bases. The spleen is slightly larger than on 09/09/2015 but still within the normal range. There are multiple cholesterol stones in the gallbladder, at least three of which exceed a centimeter in size. There is patchy inhomogeneous enhancement of the kidneys consistent with pyelonephritis. There is a small cyst laterally in the right kidney. There are air bubbles in the urinary bladder. There is some stool in the left colon and fluid in the ascending colon. Small bowel is not distended. The appendix is not distended. There is gas in the subcutaneous fat over the lower abdomen on the right which may be due to subcutaneous injection. CT of the pelvis: There is a 3.1 cm left ovarian cyst. There is some stool in the sigmoid colon and gas and stool in the rectum. There is no evidence of acute bony disease. IMPRESSION: Pyelonephritis. Cholelithiasis. Left ovarian cyst. Electronically signed by Jozef Biggs 03/16/2017 7:55 PM
[2017-03-16] MEDS ORDERED: DILAUDID IV ONE (21:33)
[2017-03-16] MEDS ORDERED: TORADOL IV ONE (21:33)
[2017-03-16] MEDS ORDERED: DILAUDID ONE (21:36)
[2017-03-16] MEDS ORDERED: TORADOL ONE (21:36)
[2017-03-16] MEDS ORDERED: DULCOLAX PR ONE (22:04)
[2017-03-16] MEDS ORDERED: NS 1,000 ML IV ONE ×2 (22:04→22:08)
[2017-03-16] MEDS ORDERED: LOVENOX SUBQ SCH (22:08)
[2017-03-16] MEDS ORDERED: ROCEPHIN 1 GM/NS 1 GM/50 ML IVPB IV SCH (22:08)
[2017-03-16] MEDS ORDERED: TYLENOL PO ONE (22:09)
[2017-03-16] MEDS ORDERED: TYLENOL ONE (22:11)
[2017-03-16] MEDS ORDERED: NICODERM PATCH TD ONE (22:50)
[2017-03-16] MEDS: ROCEPHIN 1 GM/NS 1 GM/50 ML IVPB IV SCH (23:48)
[2017-03-16] MEDS: ZOFRAN IV PRN (23:49)
[2017-03-17] MEDS: DILAUDID IV PRN ×8 (00:19→23:15)
[2017-03-17] MEDS: PHENERGAN PR PRN (00:19)
[2017-03-17] MEDS: POTASSIUM CHLORIDE 10 MEQ in NS 1,000 ML IV SCH ×2 (00:20→11:32)
--- NOTE | 2017-03-17 03:27 | HISTORY AND PHYSICAL ---
PRIMARY CARE PHYSICIAN: No primary care physician. REASON FOR ADMISSION: A 3 week history of fever and chills, and a 1 month history of constipation. HISTORY OF PRESENT ILLNESS: The patient comes in today complaining of fever, chills, nausea, vomiting, and headache of a few days' duration. Prior to this, she had been dealing with a 1 month history of no bowel movements. Three days ago, she developed fever and chills, and some lower abdominal pain which radiates to the back. She, yesterday, tried to evacuate her bowels using 3 enemas, thinking that this would resolve her abdominal pain. She comes in today for lingering complaints of fever, chills, and worsening lower abdominal pain which she describes as crampy to sharp, intermittent but over the last 1 day, it has been constant. Was given 1 enema, given Relistor and mineral oil. She has not had a bowel movement yet. She says her pain has worsened, however. The patient currently is complaining of the pain getting worse and she is unable to keep anything down but feels hungry. She denies any cardiorespiratory complaints. No burning or dysuria. She has had a dull frontal headache since the onset of her fever and chills but no nuchal rigidity. No focal weakness, numbness, or tingling. No bleeding from any orifice. REVIEW OF SYSTEMS: A 12 system review was done. Positive findings per HPI. ALLERGIES: The patient says that Ambien causes hallucinations. MEDICATIONS: She is not on any medication at this time. PAST SURGICAL HISTORY: She has had a section and bilateral knee surgery. FAMILY HISTORY: She says she is adopted. PAST MEDICAL HISTORY: Notable for hepatitis C, ADHD, anxiety, depression, iron-deficiency anemia, and recurrent UTIs. SOCIAL HISTORY: She smokes 1 pack a day. No alcohol or drug use per the patient. LABORATORY WORK: White count is 9.3, hemoglobin and hematocrit 11 and 30, platelets 254,000, with normal differential. Sodium is 133, potassium 3.3, glucose 122, albumin 3.2. UDS positive for cocaine, cannabis, amphetamines, and benzodiazepine. Urinalysis positive for nitrites, too numerous to count WBCs, 4+ bacteria. IMAGING: CT of the abdomen and pelvis shows pyelonephritis, a 3 cm left ovarian cyst, stool in the sigmoid colon and in the rectum. She has multiple cholesterol stones in the gallbladder, air bubbles in the bladder. She has bilateral pyelonephritis. PHYSICAL EXAMINATION: GENERAL: Young, woman who is acutely ill and in moderate distress from her pain. VITAL SIGNS: Temperature 100.5 degrees, heart rate 122, respirations 24, blood pressure 107/72, 100% on room air. She is alert, oriented to person, place, and time. HEENT: Head is normocephalic, atraumatic. Eyes: BRAD, EOMI. She is anicteric and not pale. ENT and oropharyngeal exam is notable for some small amounts of oral thrush on the soft palate and tonsillar area. No erythema. She has very poor oral dentition. No central cyanosis. NECK: Supple. No JVD or carotid bruit. No thyromegaly. CHEST: Clear to auscultation. Good air entry in both lung boyd. HEART: First and second heart sounds heard. No gallops or rubs. Rhythm is regular. ABDOMEN: Full, soft, with tenderness localized in the right upper quadrant area. Green's sign is equivocal. Bowel sounds are hypoactive. RECTAL: Examination is deferred. BACK: She has bilateral CVA tenderness. EXTREMITIES: No edema clubbing, cyanosis. Pulses distally in all extremities are symmetrical with good volume. NEUROLOGICAL: No focal deficits. SKIN: Intact. No breakdown, lesions, or erythema. MUSCULAR: Examination is grossly normal. ASSESSMENT: 1. Bilateral pyelonephritis. 2. Hypokalemia. 3. Dehydration. 4. Hepatitis C. 5. Polysubstance abuse (i.e., cocaine, amphetamines, benzodiazepines, and THC). 6. Cholelithiasis. PLAN: Treat patient symptomatically for nausea, vomiting, and pain. Start patient on empiric antibiotics. Follow up urine cultures. Blood cultures will also be drawn to ensure no bacteremia. We will consult Dr. Thompson for chronic constipation issues and probable followup for her hepatitis C. Consult Dr. Dorman for possible gallbladder disease. Replete the potassium. DVT prophylaxis with Lovenox. cc: Griselda Huerta MD
[2017-03-17] MEDS: ZOFRAN IV PRN ×4 (05:01→20:24)
[2017-03-17 07:06] LABS: MANUAL DIFF NEEDED? NO
[2017-03-17 07:12] LABS: BASO% 0.1 % (0.0-0.8); EOS# 0.03 X1000 (0.0-0.7); EOS% 0.4 % (0.0-10.0); HEMATOCRIT 33.3 % (37.0-47.0); HEMOGLOBIN 11.1 g/dL (12.0-16.0); IMM GRAN# 0.02 X1000 (0.0-0.04); IMM GRAN% 0.3 % (0.0-0.5); LYMPH# 0.62 X1000 (1.2-3.4); LYMPH% 8.8 % (20.5-51.1); MCH 29.8 PG (27-31); MCHC 33.3 g/dL (33-37); MCV 89.3 FL (81-99); MONO# 1.28 X1000 (0.11-0.59); MONO% 18.2 % (1.7-9.3); MPV 10.1 FL (7.4-10.4); NEUT% 72.2 % (42.2-75.2); PLT 202 X1000 (130-400); RBC 3.73 XMIL (4.2-5.4)
[2017-03-17 07:36] LABS: AGAP 9; ALKALINE PHOSPHATASE 71 U/L (32-104); BUN 5 mg/dL (8-22); CALCIUM 8.2 mg/dL (8.8-10.2); CHLORIDE 99 mmol/L (98-107); COSMO 268; GOT 13 U/L (10-30); GPT 11 U/L (10-36); POTASSIUM 3.4 mmol/L (3.5-5.1); SODIUM 135 mmol/L (136-145); TCO2 27 mmol/L (25-35); TOTAL BILIRUBIN 0.18 mg/dL (0.20-1.00); TOTAL PROTEIN 7.1 g/dL (6.3-8.3)
[2017-03-17] MEDS ORDERED: KLOR-CON PO ONE (07:51)
[2017-03-17] MEDS ORDERED: TYLENOL PO SCH ×2 (09:00)
[2017-03-17] MEDS ORDERED: MOTRIN PO SCH (09:00)
[2017-03-17] MEDS: LOVENOX SUBQ SCH (09:17)
[2017-03-17] MEDS: MOTRIN PO SCH ×3 (09:17→20:12)
[2017-03-17] MEDS: MIRALAX PO SCH ×2 (09:32→20:14)
[2017-03-17] MEDS: BENTYL PO SCH ×3 (12:33→20:14)
[2017-03-17] MEDS: NICODERM PATCH TD SCH (12:33)
--- NOTE | 2017-03-17 15:06 | PROGRESS NOTE ---
DATE: 03/17/2017 SUBJECTIVE: This patient is complaining of belly pain mostly at the level of the right and left flank, she has CVA tenderness. Today she is not having fever or chills. She denies nausea, vomiting. She is asking to advance her diet which I did. She was complaining of constipation but today she had a large bowel movement after getting after getting an enema. OBJECTIVE: Vital Signs: Temperature 99.6 degrees, pulse 112, respiratory rate 14, blood pressure 102/63, O2 saturation 99 on room air. HEENT: Head normocephalic. No trauma. PERRLA. Neck: Supple. No JVD. No masses. Central trachea. Chest: Clear to auscultation. No wheezing. No rales. Abdomen: Soft, tender to palpation at the level of the flanks. No rebound. Positive CVA. Positive bowel sounds. Extremities: No edema. No clubbing. No cyanosis. Neurological: The patient is alert and oriented x3. No focal deficits. LABORATORY: WBC 7, hemoglobin 11.1, hematocrit 33.3, platelets 202,000. Sodium 135, potassium 3.4, chloride 99, bicarbonate 27. BUN 5, creatinine 0.7, glucose 106, calcium 8.2, albumin 3. ASSESSMENT AND PLAN: 1. Bilateral pyelonephritis. I will continue with ceftriaxone for now. I have a positive culture that showed gram negative garrett pending sensitivity. I will continue with IV fluids as well. 2. Hypokalemia. I will replace the potassium today. 3. Dehydration. Continue with IV fluids. 4. Hepatitis C. Gastroenterology department has been consulted. She denies IV drugs and previous transfusions. 5. Polysubstance abuse. She states that she has been using sometimes marijuana but she denies amphetamine or cocaine. This patient has been highly advised against drug abuse. I will continue with daily cessation education. 6. Cholelithiasis. Surgery department has been consulted. Pending recommendations. cc: Kirk Lopez MD
[2017-03-17] MEDS ORDERED: GOLYTELY PO ONE (16:06)
--- NOTE | 2017-03-17 20:36 | CONSULTATION ---
DATE OF CONSULTATION: 03/17/2017 REFERRING PHYSICIAN: Griselda Huerta MD INDICATION FOR CONSULTATION: 1. Constipation. 2. Hepatitis C. 3. Cholelithiasis. HISTORY OF PRESENT ILLNESS: The patient is a 31-year-old white female who has a history of hepatitis C, ADHD, anxiety, depression, iron-deficiency anemia, recurrent urinary tract infections. She presented to the emergency room with 3 weeks of fever and chills and 1 month of constipation. She states that she has had constipation all of her life, but it has never been this severe. 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 She states that she developed such severe nausea that she smoked marijuana to help with her nausea and abdominal pain. However, the pain became progressively worse. She reports attempting to evacuate with enemas and oral laxatives. Unfortunately, she had minimal bowel movement. She presented to the emergency room where she received an enema, Relistor and mineral oral. She was unable to defecate despite receiving treatment. She is admitted for further evaluation. The patient states that she has continued to have low-grade temperatures and she has a dull frontal headache that began with the onset of fevers and chills. She reports being diagnosed with hepatitis C 1 year ago. She is currently followed by Dr. Rachelle Solis in [facility] who is her regular branch account executive. PAST MEDICAL HISTORY: 1. Hepatitis C diagnosed in 2016. 2. ADHD. 3. Anxiety. 4. Depression. 5. Iron-deficiency anemia. 6. Recurrent urinary tract infections. 7. Bilateral pyelonephritis. PAST SURGICAL HISTORY: 1. . 2. Bilateral knee surgery. MEDICATION ALLERGIES: Ambien. HOME MEDICATIONS: None. FAMILY HISTORY: The patient is adopted. SOCIAL HISTORY: Remarkable in that she smokes 1 pack per day. She uses marijuana on an intermittent basis. She has used drugs and alcohol in the past on a social basis. She is a dancer as an adult night club. REVIEW OF SYSTEMS: Remarkable for bilateral flank pain. The patient has been found to have bilateral pyelonephritis, hypokalemia and dehydration. She notes chronic constipation. PHYSICAL EXAMINATION: Vital signs: Her blood pressure is remarkable for a systolic blood pressure 102, with a systolic of 63. Heart rate is 112, respirations 14, temperature of 99.6 degrees. Her temperature maximum is 100.5 degrees. HEENT: Negative for jaundice. The patient has normal sclerae. She has pale conjunctivae. Oropharyngeal mucosal membranes are dry. Pulmonary: She notably has a small amount of oral thrush and very poor dentition. Neck: Supple. Chest: Clear to auscultation with normal expiratory effort. Cardiovascular: Reveals a resting tachycardia with a regular rhythm. Her abdominal reveals normoactive bowel sounds. Abdomen: Soft with moderate right upper quadrant tenderness, but no rebound or guarding. Extremities: Negative for cyanosis, clubbing, or edema. Neurologic: She is alert and oriented x3. She is in moderate pain, but in no acute distress. She is tearful at times during the history. OBJECTIVE DATA: Reveals a hemoglobin 11.1 with hematocrit of 33.3, and a white count of 7.02. She had 202,000 platelets. Sodium 135, potassium 3.4, chloride 99, CO2 27, BUN 5, creatinine 0.7, glucose 106. Calcium is 8.2, total bilirubin 0.18, AST 13, ALT 11, alkaline phosphatase 71, total protein 7.1, and albumin 3. CT scan is remarkable for bilateral pyelonephritis, 3 cm left ovarian cyst, moderate constipation with stool in the sigmoid colon and rectum, multiple cholesterol stones in the gallbladder, air bubbles in her cystic bladder. The liver appeared otherwise unremarkable. There were some small cysts in the right kidney. Otherwise, there was no acute disease noted. IMPRESSION: 1. Constipation. 2. Hepatitis C. 3. Iron-deficiency anemia. 4. Hypokalemia. 5. Polysubstance abuse (urine toxicology screen was positive for amphetamines, benzodiazepines, cocaine, and marijuana). 6. Volume depletion. RECOMMENDATION: 1. The patient reports significant constipation that has become progressively worse. I recommend a soapsuds enema x2. 2. Begin Bentyl 10 mg 1 p.o. 4 times a day for abdominal spasms. 3. I will place the patient on a MiraLAX 17 g twice a day to help facilitate a regular bowel regimen as she is on narcotics which can be associated with opioid-induced constipation. 4. I agree with the treatment for her bilateral pyelonephritis. 5. If she has no further nausea with vomiting, it is reasonable to advance her diet to a mechanical soft diet. 6. I agree with recommendations to have her gallbladder evaluated. It may be prudent to check a HIDA scan to confirm that the gallstones are the cause of her symptoms. 7. She has hepatitis C. However, she is followed by Dr. Rachelle herzog in [place]. Therefore, I will address the acute concerns but defer our management of her hepatitis C until she has a chance to follow up with her primary branch account executive. cc: MD Agustina Motley CRNP Omar J. Sosa-Chirinos, MD Olakunle P. Akinsoto, MD Smita Shah
[2017-03-17] MEDS ORDERED: NS 500 ML IV ONE (21:00)
[2017-03-17] MEDS: ROCEPHIN 1 GM/NS 1 GM/50 ML IVPB IV SCH (23:16)
[2017-03-17] MEDS: NS 1,000 ML IV SCH ×2 (23:21→23:22)
[2017-03-18] MEDS: ZOFRAN IV PRN ×3 (00:07→15:52)
[2017-03-18] MEDS: DILAUDID IV PRN ×7 (03:06→21:53)
[2017-03-18 07:02] LABS: MANUAL DIFF NEEDED? NO
[2017-03-18 07:12] LABS: BASO% 0.2 % (0.0-0.8); EOS# 0.05 X1000 (0.0-0.7); HEMATOCRIT 31.9 % (37.0-47.0); HEMOGLOBIN 10.5 g/dL (12.0-16.0); LYMPH# 1.21 X1000 (1.2-3.4); LYMPH% 25.4 % (20.5-51.1); MCH 29.7 PG (27-31); MCHC 32.9 g/dL (33-37); MCV 90.4 FL (81-99); MONO# 0.85 X1000 (0.11-0.59); MONO% 17.8 % (1.7-9.3); MPV 10.2 FL (7.4-10.4); NEUT% 55.6 % (42.2-75.2); PLT 187 X1000 (130-400); RBC 3.53 XMIL (4.2-5.4)
[2017-03-18 08:04] LABS: AGAP 12; BUN 4 mg/dL (8-22); CALCIUM 8.6 mg/dL (8.8-10.2); CHLORIDE 104 mmol/L (98-107); COSMO 272; POTASSIUM 4.1 mmol/L (3.5-5.1); SODIUM 138 mmol/L (136-145); TCO2 22 mmol/L (25-35)
[2017-03-18] MEDS: BENTYL PO SCH ×4 (08:57→21:53)
[2017-03-18] MEDS: NICODERM PATCH TD SCH (08:58)
[2017-03-18] MEDS: MOTRIN PO SCH ×3 (08:59→17:03)
[2017-03-18] MEDS: LOVENOX SUBQ SCH (08:59)
[2017-03-18] MEDS: MIRALAX PO SCH ×2 (08:59→21:54)
[2017-03-18] MEDS: NS 1,000 ML IV SCH ×2 (09:38→22:00)
[2017-03-18] MEDS: PHENERGAN PR PRN ×3 (12:49→21:53)
--- NOTE | 2017-03-18 13:42 | PROGRESS NOTE ---
DATE: 03/18/2017 SUBJECTIVE: This patient is still complaining of belly pain mostly at the level of the right upper quadrant and flank, she has CVA tenderness. She is not having fever or chills. She denies nausea, vomiting. She is tolerating diet. She is not longer constipated. We have a positive urine culture that showed E. coli that is sensitive to levofloxacin and I will put this patient on his medication. OBJECTIVE: Vital Signs: Temperature 99.3 degrees, pulse 111, respiratory rate 19, blood pressure 116/65, oxygen saturation 98 on room air. HEENT: Head normocephalic. No trauma. PERRLA. Neck: Supple. No JVD. No masses. Central trachea. Chest: Clear to auscultation. No wheezing. No rales. Cardiovascular: RRR. Tachycardic. Abdomen: Soft. Tender to palpation at the level of the flanks and right upper quadrant. No rebound. Positive CVA. Positive bowel sounds. Extremities: No edema. No clubbing. No cyanosis. Neurological: The patient is alert and oriented x3. No focal neurological deficits. LABORATORY: WBC 4.7, hemoglobin 10.5, hematocrit 31.9, platelets 187,000. Sodium 138, potassium 4.1, chloride 104, bicarbonate 22, BUN 4, creatinine 0.5, glucose 87, calcium 8.6. ASSESSMENT AND PLAN: 1. Bilateral pyelonephritis. I have switched the medication to levofloxacin. I am planning to discharge this patient in the near future with this medication. We have a positive urine culture that showed Escherichia coli sensitive to quinolones. Continue with IV fluids. 2. Hypokalemia resolved. 3. Dehydration resolved. Continue with IV fluids. 4. Hepatitis C. This patient has a primary president financial institution, once she is discharged she will follow up with this doctor. 5. Polysubstance abuse. She states that she has been using sometimes marijuana but she denies amphetamines or cocaine. This patient has been highly advised against drugs abuse and I will continue with daily cessation education. 6. Cholelithiasis. Surgery department is following this patient. They will do a cholecystectomy but not during this admission. Hopefully in a couple weeks as an outpatient. cc: Kirk Lopez MD
[2017-03-18] MEDS: LEVAQUIN 750 MG/D5W 750 MG/150 ML IVPB IV SCH (17:03)
[2017-03-19] MEDS: DILAUDID IV PRN ×4 (01:17→12:28)
[2017-03-19] MEDS: PHENERGAN PR PRN ×3 (03:05→11:42)
[2017-03-19] MEDS: NS 1,000 ML IV SCH ×2 (05:20→11:42)
[2017-03-19 07:11] LABS: MANUAL DIFF NEEDED? NO
[2017-03-19 07:17] LABS: BASO% 0.8 % (0.0-0.8); EOS# 0.12 X1000 (0.0-0.7); EOS% 2.3 % (0.0-10.0); HEMATOCRIT 33.4 % (37.0-47.0); HEMOGLOBIN 11.1 g/dL (12.0-16.0); IMM GRAN# 0.02 X1000 (0.0-0.04); IMM GRAN% 0.4 % (0.0-0.5); LYMPH# 1.49 X1000 (1.2-3.4); LYMPH% 28.2 % (20.5-51.1); MCH 29.7 PG (27-31); MCHC 33.2 g/dL (33-37); MCV 89.3 FL (81-99); MONO# 0.65 X1000 (0.11-0.59); MONO% 12.3 % (1.7-9.3); MPV 9.9 FL (7.4-10.4); PLT 248 X1000 (130-400); RBC 3.74 XMIL (4.2-5.4)
[2017-03-19 07:46] LABS: AGAP 10; BUN 4 mg/dL (8-22); CALCIUM 10.2 mg/dL (8.8-10.2); CHLORIDE 99 mmol/L (98-107); COSMO 270; SODIUM 137 mmol/L (136-145); TCO2 28 mmol/L (25-35)
[2017-03-19 08:17] VITALS: BP 112/69
--- NOTE | 2017-03-19 09:04 | PROGRESS NOTE ---
DATE: 03/18/2017 SUBJECTIVE: The patient states that her constipation has resolved with the 2 soapsuds enemas. She is feeling better overall from a GI perspective. She continues to have flank pain in the right flank and right upper quadrant which she attributes to her bilateral pyelonephritis. Otherwise, the patient denies complaints. She is asking me for additional pain medications. I informed her that she would have to discuss this with the primary service and with the nursing staff with regard to receiving her actual doses. RECOMMENDATION: 1. The patient is clinically better from a GI perspective. Therefore, we will sign off. 2. She is followed by Dr. Rachelle Solis in [place], [place]. She plans to return to her care for management of her hepatitis C. cc: MD Kirk Motley MD Smita Shah Anna M. Dumas, CRNP
[2017-03-19] MEDS: MIRALAX PO SCH (09:16)
[2017-03-19] MEDS: NICODERM PATCH TD SCH (09:16)
[2017-03-19] MEDS: LOVENOX SUBQ SCH (09:17)
[2017-03-19] MEDS: BENTYL PO SCH ×2 (09:17→13:56)
[2017-03-19] MEDS: LEVAQUIN 750 MG/D5W 750 MG/150 ML IVPB IV SCH (13:56)
[2017-03-19] MEDS ORDERED: ZOFRAN PO PRN (14:31)
[2017-03-19] MEDS ORDERED: NORCO-5 PO PRN (14:37)
[2017-03-19] MEDS: ZOFRAN IV PRN (15:21)
[2017-03-20] MEDS ORDERED: LEVAQUIN PO SCH (14:00)
--- NOTE | 2017-03-20 14:25 | DISCHARGE SUMMARY ---
ADMISSION DATE: 03/16/2017 DISCHARGE DATE: 03/19/2017 DISCHARGE DIAGNOSES: 1. Bilateral pyelonephritis. 2. Cholelithiasis. 3. Hypokalemia, resolved. 4. Dehydration, resolved. 5. Hepatitis C. 6. Polysubstance abuse. CONSULTATIONS: Gastroenterology Department and Surgery Department. HOSPITAL COURSE: This 31-year-old, female, with a past medical history of hepatitis C, ADHD, anxiety, depression, iron deficiency anemia and recurrent UTIs, came to the emergency department with a chief complaint of fever, chills, nausea, vomiting and headache for a few days. Prior to this, apparently she has been dealing with a 1-month history of constipation. She started having fever and chills three days prior to admission and some lower abdominal pain which deviates to the back, but the day prior to the admission she tried to evacuate her bowels using 3 enemas thinking that this would resolve her abdominal pain. She denies any cardiorespiratory complaints. No burning or dysuria. She was hungry but she could not keep anything down. She was evaluated by Gastroenterology Department and they recommended to use enemas and this patient had a large bowel movement. We had a urinalysis that showed E. coli that was rincon- sensitive except for ampicillin ans ampicillin sulbactam. We did a CT of the abdomen and pelvis that showed bilateral pyelonephritis, cholelithiasis and left ovarian cyst. This patient was placed on antibiotics, fluids. This patient was improving on a daily basis. No more fever or chills. She was evaluated by Surgery Department who recommended cholecystectomy but as an outpatient in about 2 weeks. Like I said, this patient was getting better on a daily basis. She was moving her bowels, and she has been treated with antibiotics, so we decided to discharge this patient and we asked her to follow up with her primary care physician and also follow up by her market research intern, Dr. Rachelle Solis, to control her hepatitis C. Also, follow up with Surgery Department, Dr. Hi, to schedule her cholecystectomy. OBJECTIVE: Vital Signs: Temperature 98.2 degrees, pulse 94, respiratory rate 20 , blood pressure 112/69, oxygen saturation 100% on room air. HEENT: Head normocephalic. No trauma. PERRLA. Neck supple. No JVD. No masses. Central trachea. Chest clear to auscultation. No wheezing. No rales. Abdomen soft, Mild tenderness to palpation at the level of the right upper quadrant. No signs of peritoneal irritation. Extremities: No edema. No clubbing. No cyanosis. Neurological: The patient is alert and oriented x3. No focal neurological deficits. LABORATORY: WBC 5.2, hemoglobin 11.1, hematocrit 33.4, platelets 248,000. Sodium 137, potassium 4, chloride 99, bicarbonate 28. BUN 4, creatinine 0.5, glucose 83, calcium 10.2. DISCHARGE MEDICATIONS: 1. MiraLAX 17 g p.o. daily. 2. Zofran 4 mg p.o. q.6 hours p.r.n. nausea, vomiting. 3. Levofloxacin 750 mg p.o. daily. 4. [place] 5, 1 tablet p.o. q.6 hours p.r.n. FOLLOWUP: Follow up with Dr. Rachelle Solis to control her hepatitis C. Follow up with Surgery Department, Dr. Hi, in 2 weeks, and follow up with her primary doctor in 1 week. Time discharging this patient 35 minutes. cc: Kirk Lopez MD MTDD
== END 2017-03-19 15:51 | disposition home or self-care (01) ==
LOC: ED 16:36 → SUATTDRO 23:05 → 3N 23:05
PROVIDERS: ATTEND Internal Medicine